=== PATIENT | male | born 1955 | race Caucasian/White ===

== ENCOUNTER 2017-01-17 02:27 | Emergency (ER) | payer OTHER ==
[~2017-01-17] VITALS: Ht 167.6 cm; Wt 98.8 kg
[~2017-01-17 02:27] MED LIST: ACET-703 PO; CENTTAB20 PO; FLUT1SPR5 EACH NARE; LISI-515 PO; LOVA20TA PO; MULT1TAB; VITA400C5 PO; VITASPR PO
[2017-01-17 02:31] VITALS: BP 133/76; PULSE 80; RESP 16; TEMP 98.4; O2SAT 94
[2017-01-17] MEDS ORDERED: LISI10TA3 PO (02:49)
[2017-01-17] MEDS ORDERED: [UNRECOGNIZED DRUG - OTHER] PO (02:51)
--- NOTE | 2017-01-17 03:13 | PD ---
HPI Chief Complaint: Complaint Time Seen by Provider: 02:52 Travel History International Travel<30 days: No Contact w/Intl Traveler<30days: No Traveled to known affect area: No History of Present Illness HPI The patient is a 62-year-old male that complains of blood in the urine for 2 days. He does have dysuria but denies any penile discharge. This is the first time he has noted blood in the urine. He denies any fever, nausea, vomiting or diarrhea. He denies any abdominal pain. His only medicine is lisinopril, he has a history of hypertension. PFSH Past Medical History Cancer: Yes (COLON) Diminished Hearing: No Hypertension: Yes Tetanus Vaccination: > 5 Years Influenza Vaccination: Yes Past Surgical History Other Surgery: Yes (COLON RESECTION S/P COLON CA) Social History Alcohol Use: Yes (RARELY) Tobacco Use: Yes (1 cig per day) Substance Use: No Allergies-Medications (Allergen,Severity, Reaction): Coded Allergies: Parafon Forte (Verified Allergy, Severe, Hives, 01/17/17) Reported Meds & Prescriptions Reported Meds & Active Scripts Active Pyridium (Phenazopyridine HCl) 100 Mg Tab 100 Mg PO Q8H PRN Macrobid (Nitrofurantoin Monohydrate Macrocrystals) 100 Mg Capsule 100 Mg PO BID 10 Days Reported [Research Study Meds] Unknown Dose PO BID Lisinopril 10 Mg Tab 10 Mg PO BID Review of Systems Except as stated in HPI: all other systems reviewed are Neg Physical Exam Narrative GENERAL: The patient is alert, oriented 3 in no apparent distress when I see him. His vital signs are normal. SKIN: Focused skin assessment warm/dry. No skin rash is seen. HEAD: Atraumatic. Normocephalic. EYES: Pupils equal and round. No scleral icterus. No injection or drainage. ENT: No nasal bleeding or discharge. Mucous membranes pink and moist. NECK: Trachea midline. No JVD. CARDIOVASCULAR: Regular rate and rhythm. No murmur appreciated. RESPIRATORY: No accessory muscle use. Clear to auscultation. Breath sounds equal bilaterally. GASTROINTESTINAL: Abdomen soft, non-tender, nondistended. Hepatic and splenic margins not palpable. No guarding or rebound is present. No flank tenderness is present. MUSCULOSKELETAL: No obvious deformities. No clubbing. No cyanosis. No edema. NEUROLOGICAL: Awake and alert. No obvious cranial nerve deficits. Motor grossly within normal limits. Normal speech. PSYCHIATRIC: Appropriate mood and affect; insight and judgment normal. Data Data Last Documented VS Vital Signs Date Time Temp Pulse Resp B/P Pulse Ox O2 Delivery O2 Flow Rate FiO2 01/17/17 02:31 98.4 80 16 133/76 94 Orders Urinalysis - C+S If Indicated (01/17/17 03:14) Urine Culture (01/17/17 03:15) Phenazopyridine (Pyridium) (01/17/17 04:00) Nitrofurantoin Monohyd Macrocr (Macrobid (01/17/17 04:00) Labs Laboratory Tests Test 01/17/17 03:15 Urine Color YELLOW Urine Turbidity SLIGHT Urine pH 6.0 Urine Specific [place] 1.021 Urine Protein 30 mg/dL Urine Glucose (UA) NEG mg/dL Urine Ketones NEG mg/dL Urine Occult Blood LARGE Urine Nitrite NEG Urine Bilirubin NEG Urine Leukocyte Esterase TRACE Urine RBC 25-49 /hpf Urine WBC 9-14 /hpf Urine Squamous Epithelial 0-5 /hpf Cells Urine Mucus MOD /lpf Microscopic Urinalysis Comment CULTURE INDICATED MDM Medical Decision Making Medical Screen Exam Complete: Yes Emergency Medical Condition: Yes Medical Record Reviewed: Yes Interpretation(s) The urine shows 30 protein, large occult blood, trace leukocyte esterase with 25 -49 red cells and 9-14 white cells and culture is indicated. Differential Diagnosis Urinary tract infection, bladder cancer, urethritis Narrative Course The patient has a urinary tract infection. Plan: He will be given a prescription for Macrobid for 10 days and follow-up with his primary care physician next week. Diagnosis Primary Impression: Cystitis Additional Instructions: Increase liquid intake and take the antibiotic twice daily for 10 days. Follow- up next week with her primary care physician. Med/Other Pt SpecificInfo: Prescription(s) given Scripts Phenazopyridine (Pyridium)100 Mg [id number] Mg PO Q8H PRN (DYSURIA) #21 TAB Ref 0 Prov:Ramesh Brown MD 01/17/17 Nitrofurantoin Monohydrate Macrocrystals (Macrobid)100 Mg [id number] Mg PO BID 10 Days Ref 0 Prov:Ramesh Brown MD 01/17/17 Disposition: 01 DISCHARGE HOME Condition: Stable Ramesh Brown MD Jan 17, 2017 03:13
[2017-01-17 03:22] LABS: BLOOD, URINE LARGE (NEG); GLUCOSE,URINE NEG (NEG); KETONE, URINE NEG (NEG); NITRITE,URINE NEG (NEG)
[2017-01-17 03:29] LABS: URINE COLOR YELLOW (YELLW/STRAW)
[2017-01-17 03:30] LABS: MUCUS URINE MOD /lpf (OCC)
[2017-01-17 03:31] LABS: COMMENT (UR) CULTURE INDICATED; CULTURE IF INDICATED CULTURE INDICATED; SQUAMOUS EPITHELIAL CELL URINE 0-5 /hpf (0-5)
[2017-01-17] MEDS ORDERED: PHEN0.4T PO (03:55)
[2017-01-17] MEDS ORDERED: MACR100C2 PO (03:55)
[2017-01-17] MEDS ORDERED: PHENAZOPYRIDINE HCL 200 MG TAB PO ONE (04:00)
[2017-01-17] MEDS ORDERED: NITROFURANTOIN MONOHYD MACROCR 100 MG CAP PO ONE (04:00)
== END 2017-01-17 04:12 | disposition home or self-care (01) ==
LOC: PHED 02:27
DX: N30.90 Cystitis, unspecified without hematuria (principal); I10 Essential (primary) hypertension; Z72.0 Tobacco use; B96.29 Other Escherichia coli [E. coli] as the cause of diseases classified elsewhere
CPT/HCPCS: 81001; 87086; 99284

== ENCOUNTER → 2017-02-27 | Outpatient (CLI) | payer OTHER ==
[~2017-02-27] MED LIST changes: -ACET-703 PO; -CENTTAB20 PO; -FLUT1SPR5 EACH NARE; -LISI-515 PO; +LISI10TA3 PO; +LOVA10TA PO; -LOVA20TA PO; -MULT1TAB; +MULTTAB23 PO; -VITA400C5 PO; -VITASPR PO
[2017-02-27 21:48] LABS: HEMOGLOBIN A1a 1.1 %; HEMOGLOBIN Ao 84.6 %; HEMOGLOBIN LA1C 1.9 %; HEMOGLOBIN P3 3.8 %
== END ==
LOC: PLAB 15:20
PROVIDERS: ATTEND Nurse Practitioner Family
DX: R73.9 Hyperglycemia, unspecified (principal)
CPT/HCPCS: 83036

== ENCOUNTER 2017-07-06 23:19 | Emergency (ER) | payer SELFPAY ==
[~2017-07-06] VITALS: Ht 167.6 cm; Wt 92.0 kg
[2017-07-06 23:26] VITALS: BP 162/88; PULSE 77; RESP 18; TEMP 98.4; O2SAT 96
[2017-07-07] MEDS ORDERED: PENICILLIN V POTASSIUM 500 MG TAB PO ONE (02:15)
[2017-07-07] MEDS ORDERED: IBUPROFEN 800 MG TAB PO ONE (02:15)
[2017-07-07 02:16] VITALS: BP 115/82; PULSE 78; RESP 18; TEMP 97.9; O2SAT 97
[2017-07-07] MEDS ORDERED: PENI500T PO (02:16)
[2017-07-07] MEDS ORDERED: IBUP-232 PO (02:16)
[2017-07-07] MEDS ORDERED: TRAM50TA PO (02:16)
--- NOTE | 2017-07-07 02:17 | PD ---
HPI Chief Complaint: Oral / Dental Pain or Problem Time Seen by Provider: 01:35 Travel History International Travel<30 days: No Contact w/Intl Traveler<30days: No Traveled to known affect area: No History of Present Illness HPI Patient has poor dentition he's had multiple tooth fractures and he does not have the money to see a dentist for definitive care of extraction. PFSH Past Medical History Arthritis: Yes Cancer: Yes (COLON) Diminished Hearing: No Hypertension: Yes Tetanus Vaccination: < 5 Years Influenza Vaccination: No Past Surgical History Other Surgery: Yes (COLON RESECTION S/P COLON CA) Social History Alcohol Use: Yes (Occ) Tobacco Use: Yes (1-2 cig per day) Substance Use: No Allergies-Medications (Allergen,Severity, Reaction): Coded Allergies: chlorzoxazone (Unverified Allergy, Severe, Hives, 07/07/17) Reported Meds & Prescriptions Reported Meds & Active Scripts Active Tramadol (Tramadol HCl) 50 Mg Tab 50 Mg PO Q4H PRN Ibuprofen 600 Mg Tab 600 Mg PO Q6H PRN Penicillin V Potassium 500 Mg Tab 500 Mg PO Q8H Lovastatin 10 Mg Tab 10 Mg PO DAILY Lisinopril 10 Mg Tab 10 Mg PO BID Multi For Him 50+ (Multiple Vitamins W/ Minerals) 1 Tab Tab 1 Tab PO DAILY Review of Systems Except as stated in HPI: all other systems reviewed are Neg HENT: Positive: Other (toothache and fractured teeth on the lower premolars bilateral) Physical Exam Narrative GENERAL: Patient is in no distress appears nontoxic SKIN: Warm and dry. HEAD: Atraumatic. Normocephalic. EYES: Pupils equal and round. No scleral icterus. No injection or drainage. ENT: Multiple fractured teeth on the lower mandible with swelling to submental nodes neck L>R No nasal bleeding or discharge. Mucous membranes pink and moist. NECK: Trachea midline. No JVD. CARDIOVASCULAR: Regular rate and rhythm. RESPIRATORY: No accessory muscle use. Clear to auscultation. Breath sounds equal bilaterally. GASTROINTESTINAL: Abdomen soft, non-tender, nondistended. Hepatic and splenic margins not palpable. MUSCULOSKELETAL: Extremities without clubbing, cyanosis, or edema. No obvious deformities. NEUROLOGICAL: Awake and alert. No obvious cranial nerve deficits. Motor grossly within normal limits. Five out of 5 muscle strength in the arms and legs. Normal speech. PSYCHIATRIC: Appropriate mood and affect; insight and judgment normal. Data Data Last Documented VS Vital Signs Date Time Temp Pulse Resp B/P (MAP) Pulse Ox O2 Delivery O2 Flow Rate FiO2 07/07/17 02:29 07/07/17 02:16 97.9 78 18 97 Room Air Orders Orders Penicillin V Potassium (Veetids) (07/07/17 02:15) Ibuprofen (Motrin) (07/07/17 02:15) Ed Discharge Order (07/07/17 02:27) MDM Medical Decision Making Medical Screen Exam Complete: Yes Emergency Medical Condition: Yes Differential Diagnosis Fractured tooth versus infected tooth versus apical abscess versus gingivitis Narrative Course Motrin and Pen-Vee K for 7 days follow-up in the dental clinic Diagnosis Primary Impression: Toothache Scripts Tramadol (Tramadol) 50 Mg Tab 50 MG PO Q4H Y for PAIN, #12 TAB 0 Refills Prov: Iker Corea MD 07/07/17 Ibuprofen (Ibuprofen) 600 Mg Tab 600 MG PO Q6H Y for PAIN, #20 TAB 0 Refills Prov: Iker Corea MD 07/07/17 Penicillin V Potassium (Penicillin V Potassium) 500 Mg Tab 500 MG PO Q8H for Infection, #30 TAB 0 Refills Prov: Iker Corea MD 07/07/17 Iker Corea MD Jul 07, 2017 02:17
== END 2017-07-07 02:37 | disposition home or self-care (01) ==
LOC: PHED 23:19
DX: K08.89 Other specified disorders of teeth and supporting structures (principal); I10 Essential (primary) hypertension; Z85.038 Personal history of other malignant neoplasm of large intestine; Z72.0 Tobacco use
CPT/HCPCS: 99284

== ENCOUNTER 2017-07-25 14:41 | Emergency (ER) | payer SELFPAY ==
[~2017-07-25] VITALS: Ht 167.6 cm; Wt 93.0 kg
[~2017-07-25 14:41] MED LIST changes: +IBUP-232 PO; +PENI500T PO; +TRAM50TA PO
[2017-07-25 15:17] VITALS: BP 155/98; PULSE 68; RESP 16; TEMP 97.5; O2SAT 96
[2017-07-25 15:43] LABS: BILIRUBIN, URINE NEG (NEG); BLOOD, URINE MOD (NEG); GLUCOSE,URINE 100 mg/dL (NEG); KETONE, URINE NEG (NEG); NITRITE,URINE POS (NEG); PH, URINE 6.5 (5.0-8.5); URINE LEUKOCYTE ESTERASE NEG (NEG)
[2017-07-25 15:45] LABS: URINE COLOR YELLOW (YELLW/STRAW)
[2017-07-25 15:46] LABS: SQUAMOUS EPITHELIAL CELL URINE 0-5 /hpf (0-5); WBC, URINE 0-2 /hpf (0-5)
--- NOTE | 2017-07-25 16:33 | PD ---
HPI Chief Complaint: Complaint Time Seen by Provider: 16:20 Travel History International Travel<30 days: No Contact w/Intl Traveler<30days: No Traveled to known affect area: No History of Present Illness HPI 62yo M presented to the ED for problems starting urination, increased frequency and dysuria. He states that he had a UTI two months ago and was treated accordingly with antibiotics. He subsequently passed a kidney stone as well. Pt states that he feels the need to urinate every time he stands up and that it takes him awhile to start urinating. Pt denies gross hematuria, flank pain, discharge, fever, nausea or vomiting. Modifying Factors: None Associated Signs & Symptoms: Urinary symptoms Risk Factors: Recent UTI PFSH Past Medical History Arthritis: Yes Cancer: Yes (COLON) Diminished Hearing: No Hypertension: Yes Past Surgical History Other Surgery: Yes (COLON RESECTION S/P COLON CA) Social History Alcohol Use: Yes (RARE) Tobacco Use: Yes (1-2 cig per day) Substance Use: No Allergies-Medications (Allergen,Severity, Reaction): Coded Allergies: chlorzoxazone (Unverified Allergy, Severe, Hives, 07/25/17) Reported Meds & Prescriptions Reported Meds & Active Scripts Active Lisinopril 10 Mg Tab 10 Mg PO BID Review of Systems Except as stated in HPI: all other systems reviewed are Neg Genitourinary: Positive: Urgency, Frequency, Dysuria Physical Exam Narrative GENERAL: Well-developed elderly white male patient currently in no acute distress.. Alert and oriented x3. SKIN: Warm and dry. HEAD: Atraumatic. Normocephalic. NECK: Trachea midline. No JVD. CARDIOVASCULAR: Regular rate and rhythm. RESPIRATORY: No accessory muscle use. Clear to auscultation. Breath sounds equal bilaterally. GASTROINTESTINAL: Abdomen soft, mild suprapubic tenderness without guarding or rebound, nondistended. Hepatic and splenic margins not palpable. GENITOURINARY: no CVA tenderness MUSCULOSKELETAL: Extremities without clubbing, cyanosis, or edema. No obvious deformities. NEUROLOGICAL: Awake and alert. No obvious cranial nerve deficits. Normal speech. PSYCHIATRIC: Appropriate mood and affect; insight and judgment normal. Data Data Last Documented VS Vital Signs Date Time Temp Pulse Resp B/P (MAP) Pulse Ox O2 Delivery O2 Flow Rate FiO2 07/25/17 15:17 97.5 68 16 155/98 (117) 96 Orders Orders Urinalysis - C+S If Indicated (07/25/17 15:22) Urine Culture (07/25/17 15:26) Labs Laboratory Tests Test 07/25/17 15:26 Urine Collection Type CLEAN CATCH Urine Color YELLOW Urine Turbidity CLEAR Urine pH 6.5 Urine Specific [place] 1.021 Urine Protein 30 mg/dL Urine Glucose (UA) 100 mg/dL Urine Ketones NEG mg/dL Urine Occult Blood MOD Urine Nitrite POS Urine Bilirubin NEG Urine Leukocyte Esterase NEG Urine RBC 20-24 /hpf Urine WBC 0-2 /hpf Urine Squamous Epithelial Cells 0-5 /hpf Microscopic Urinalysis Comment CULTURE INDICATED Urine Collection Time 15:26 [facility] Medical Decision Making Medical Screen Exam Complete: Yes Emergency Medical Condition: Yes Medical Record Reviewed: Yes Differential Diagnosis UTI versus BPH versus renal colic Narrative Course He apparently had similar symptoms last month and had been treated for UTI and the symptoms improved. UA shows signs of UTI with nitrite positive. Abdomen is otherwise benign and I do not think that he has an acute intra-abdominal process or pyelonephritis. My plan would be to treat his UTI and have him follow-up with primary care doctor. He is able to urinate and states he urinates frequently. I do not see any dribbling and I do not palpate any obvious enlargement of the bladder. He should be evaluated more officially including valuation of the prostate for BPH if symptoms do not improve. Return for any worsening in symptoms as needed. The plan has been discussed with him and he states understanding. Diagnosis Primary Impression: Cystitis Med/Other Pt SpecificInfo: Prescription(s) given Scripts Nitrofurantoin Monohydrate Macrocrystals (Macrobid) 100 Mg Cap 100 MG PO BID for Infection for 7 Days, #14 CAP 0 Refills Prov: Mor Bryan MD 07/25/17 Disposition: 01 DISCHARGE HOME Condition: Stable Mor Bryan MD Jul 25, 2017 16:32
[2017-07-25] MEDS ORDERED: MACR100C2 PO (16:36)
== END 2017-07-25 16:55 | disposition home or self-care (01) ==
LOC: PHED 14:41
DX: N30.91 Cystitis, unspecified with hematuria (principal); I10 Essential (primary) hypertension; Z72.0 Tobacco use; Z87.442 Personal history of urinary calculi; Z85.038 Personal history of other malignant neoplasm of large intestine; Z87.39 Personal history of other diseases of the musculoskeletal system and connective tissue
CPT/HCPCS: 81001; 87086; 99283

== ENCOUNTER 2017-11-04 23:52 | Emergency (ER) | payer SELFPAY ==
[~2017-11-04] VITALS: Ht 167.6 cm; Wt 89.0 kg
[~2017-11-04 23:52] MED LIST changes: -IBUP-232 PO; -LOVA10TA PO; +MACR100C2 PO; -MULTTAB23 PO; -PENI500T PO; -TRAM50TA PO
[2017-11-04 23:59] VITALS: BP 158/90; PULSE 96; RESP 20; TEMP 98.2; O2SAT 96
[2017-11-05] MEDS ORDERED: TYLE325T PO (00:08)
[2017-11-05] MEDS ORDERED: SODIUM CHLORIDE 0.9% FLUSH 10 ML FLUSH IVF PRN (00:30)
[2017-11-05] MEDS ORDERED: methylPREDNISolone SOD SUCC 125 MG/2 ML VIAL IV PUSH ONE (00:30)
[2017-11-05] MEDS: RESP: ALBUTEROL 2.5 MG/IPRATROPIUM 0.5 MG NEB (SCH) INH ×2 (00:39→00:48)
[2017-11-05 00:43] LABS: BASOPHIL # 0.3 TH/MM3 (0-0.2); BASOPHIL % 2.6 % (0.0-2.0); EOSINOPHIL # 0.1 TH/MM3 (0-0.4); EOSINOPHIL % 1.4 % (0.0-4.0); HEMATOCRIT 41.1 % (39.0-51.0); HEMOGLOBIN 13.8 GM/DL (13.0-17.0); LYMPH % 18.3 % (9.0-44.0); LYMPHOCYTE # 1.9 TH/MM3 (1.0-4.8); MEAN CELL VOLUME 89.6 FL (80.0-100.0); MEAN CORPUSCULAR HGB CONC 33.5 % (32.0-36.0); MEAN PLATELET VOLUME 7.8 FL (7.0-11.0); MONO % 8.8 % (0.0-8.0); MONOCYTE # 0.9 TH/MM3 (0-0.9); NEUT % 68.9 % (16.0-70.0); PLATELET COUNT 299 TH/MM3 (150-450); RED BLOOD COUNT 4.59 MIL/MM3 (4.50-5.90); RED CELL DISTRIBUTION WIDTH 15.1 % (11.6-17.2); WHITE BLOOD COUNT 10.2 TH/MM3 (4.0-11.0)
[2017-11-05 00:49] LABS: CHLORIDE 107 MEQ/L (98-107); SODIUM (NA) 141 MEQ/L (136-145)
[2017-11-05 00:51] LABS: CALCIUM 8.5 MG/DL (8.5-10.1)
[2017-11-05 00:52] LABS: BICARBONATE 29.1 MEQ/L (21.0-32.0); BLOOD UREA NITROGEN 32 MG/DL (7-18); GLUCOSE,RANDOM 89 MG/DL (74-106)
[2017-11-05 00:55] LABS: GLOMERULAR FILTRATION RATE 48 ML/MIN (>89)
--- NOTE | 2017-11-05 00:59 | PD ---
HPI Chief Complaint: Cold / Flu Symptoms Time Seen by Provider: 00:22 Travel History International Travel<30 days: No Contact w/Intl Traveler<30days: No Traveled to known affect area: No History of Present Illness HPI 62-year-old male presents to the emergency department by private transportation for evaluation of cough with shortness of breath and wheezing 1 week. Patient admits to tobacco use and history of hypertension. Patient denies known coronary vessel disease or diabetes. Patient denies personal history of asthma COPD bronchitis or pneumonia. Patient has had cough productive of yellow sputum. Patient does not report orthopnea or PND. Patient's had no lower extremity pain or swelling. No recent long distance travel protracted bedrest or surgical procedure. Patient denies fever or chills. Pain is 5/10 intensity with cough. Patient is unable to identify exacerbating or alleviating factors. PFSH Past Medical History Narrative Medical Arthritis hypertension dyslipidemia colon cancer with partial colectomy alcohol use tobacco use nursing notes for Arthritis: Yes Cancer: Yes (COLON) High Cholesterol: Yes Diminished Hearing: No Hypertension: Yes Pneumonia: Yes Tetanus Vaccination: < 5 Years Past Surgical History Other Surgery: Yes (COLON RESECTION S/P COLON CA) Social History Alcohol Use: Yes (RARE) Tobacco Use: Yes (1-2 cig per day) Substance Use: No Allergies-Medications (Allergen,Severity, Reaction): Coded Allergies: chlorzoxazone (Unverified Allergy, Severe, Hives, 11/04/17) Reported Meds & Prescriptions Reported Meds & Active Scripts Active Lisinopril 10 Mg Tab 10 Mg PO BID Reported Tylenol (Acetaminophen) 325 Mg Tab 650 Mg PO Q4H PRN Review of Systems Except as stated in HPI: all other systems reviewed are Neg Physical Exam Narrative GENERAL: Well-developed well-nourished male no acute distress or respiratory distress SKIN: Warm and dry. HEAD: Normocephalic. EYES: No scleral icterus. No injection or drainage. NECK: Supple, trachea midline. No JVD or lymphadenopathy. CARDIOVASCULAR: Regular rate and rhythm without murmurs, gallops, or rubs. RESPIRATORY: Breath sounds equal bilaterally with expiratory wheezes and rhonchi. No accessory muscle use. GASTROINTESTINAL: Abdomen soft, non-tender, nondistended. MUSCULOSKELETAL: No cyanosis, or edema. BACK: Nontender without obvious deformity. No CVA tenderness. Data Data Last Documented VS Vital Signs Date Time Temp Pulse Resp B/P (MAP) Pulse Ox O2 Delivery O2 Flow Rate FiO2 11/05/17 01:12 88 24 94 Room Air 11/04/17 23:59 98.2 158/90 (112) Orders Orders Complete Blood Count With Diff (11/05/17 00:22) B-Type Natriuretic Peptide (11/05/17 00:22) Basic Metabolic Panel (Bmp) (11/05/17:22) Chest, Pa & Lat (11/05/17 ) Iv Access Insert/Monitor (11/05/17:) Oximetry (11/05/17:22) Sodium Chloride 0.9% Flush (Ns Flush) (11/05/17 00:30) Methylprednisolone So Succ Inj (Solumedr (11/05/17 00:30) Albuterol-Ipratropium Neb (Duoneb Neb) (11/05/17 00:30) Troponin I (11/05/17:) Sputum Culture And Gram Stain (11/05/17:) Albuterol-Ipratropium Neb (Duoneb Neb) (11/05/17 01:30) Ceftriaxone Inj (Rocephin Inj) (11/05/17 01:30) Labs Laboratory Tests Test 11/05/17 00:25 White Blood Count 10.2 TH/MM3 Red Blood Count 4.59 MIL/MM3 Hemoglobin 13.8 GM/DL Hematocrit 41.1 % Mean Corpuscular Volume 89.6 FL Mean Corpuscular Hemoglobin 30.0 PG Mean Corpuscular Hemoglobin Concent 33.5 % Red Cell Distribution Width 15.1 % Platelet Count 299 TH/MM3 Mean Platelet Volume 7.8 FL Neutrophils (%) (Auto) 68.9 % Lymphocytes (%) (Auto) 18.3 % Monocytes (%) (Auto) 8.8 % Eosinophils (%) (Auto) 1.4 % Basophils (%) (Auto) 2.6 % Neutrophils # (Auto) 7.0 TH/MM3 Lymphocytes # (Auto) 1.9 TH/MM3 Monocytes # (Auto) 0.9 TH/MM3 Eosinophils # (Auto) 0.1 TH/MM3 Basophils # (Auto) 0.3 TH/MM3 CBC Comment DIFF FINAL Differential Comment Blood Urea Nitrogen 32 MG/DL Creatinine 1.50 MG/DL Random Glucose 89 MG/DL Calcium Level 8.5 MG/DL Sodium Level 141 MEQ/L Potassium Level 4.1 MEQ/L Chloride Level 107 MEQ/L Carbon Dioxide Level 29.1 MEQ/L Anion Gap 5 MEQ/L Estimat Glomerular Filtration Rate 48 ML/MIN Troponin I LESS THAN 0.02 NG/ML B-Type Natriuretic Peptide 14 PG/ML MDM Medical Decision Making Medical Screen Exam Complete: Yes Emergency Medical Condition: Yes Medical Record Reviewed: Yes Interpretation(s) CBC & BMP Diagram 11/05/17 00:25 Calcium Level 8.5 Vital Signs Date Time Temp Pulse Resp B/P (MAP) Pulse Ox O2 Delivery O2 Flow Rate FiO2 11/05/17 01:12 88 24 94 Room Air 11/05/17 00:43 Aerosol Mask 11/05/17 00:14 86 99 Room Air 11/04/17 23:59 98.2 96 20 158/90 (112) 96 troponin I: less than 0.02, not elevated; bnp: 14, not elevated Differential Diagnosis Dyspnea, bronchitis, pneumonia, CHF, PE Narrative Course Patient presents with productive cough wheezing and shortness of breath; IV access obtained specimens collected and sent for resulting patient given Solu- Medrol and DuoNeb updrafts 2 Patient identified to have hyperinflation on chest x-ray no lobar infiltrate or vascular congestion or effusion no pneumothorax; findings consistent with COPD CBC with automated differential chemistries grossly within normal range except for renal insufficiency; troponin less than 0.02 and BNP is not elevated at 14 Patient given additional dose of DuoNeb and one-time dose of Rocephin 1 g for bronchitis Patient is clinically improved and stable for outpatient management. Diagnosis Primary Impression: Acute bronchitis with COPD Referrals: Primary Care Physician call for appointment Patient Instructions: General Instructions Additional Instructions: Increase fluid hydration Take medications as prescribed Follow-up with your primary care provider Take acetaminophen as needed for fever 100.4F or greater Return to the emergency department for any concerns or change in condition Med/Other Pt SpecificInfo: Prescription(s) given Scripts Methylprednisolone Dosepak (Medrol Dosepak) 4 Mg Dspk 4 MG PO DIRECTED, #1 DSPK 0 Refills Per Pharmacist direction Prov: Janeth Hall MD 11/05/17 Albuterol 18 GM Inh (Ventolin Hfa 18 GM Inh) 90 Mcg/Act Aer 2 PUFF INH Q4-6H Y for SHORTNESS OF BREATH, #1 INHALER 0 Refills Prov: Janeth Hall MD 11/05/17 Azithromycin (Zithromax Z-Robbie) 250 Mg Dspk 250 MG PO DIRECTED for Infection, #1 DSPK 0 Refills 500 MG (2 tabs) day 1, then 1 tab days 2-5. Prov: Janeth Hall MD 11/05/17 Disposition: 01 DISCHARGE HOME Condition: Stable Janeth Hall MD Nov 05, 2017 00:59
[2017-11-05 01:00] LABS: TROPONIN I LESS THAN 0.02 NG/ML (0.02-0.05)
[2017-11-05 01:12] VITALS: PULSE 88; RESP 24; O2SAT 94
--- NOTE | 2017-11-05 01:19 | RADRPT ---
EXAM DATE/TIME: 11/05/2017 00:40 [facility] COMPARISON: No previous studies available for comparison. INDICATIONS : Cough. MEDICAL HISTORY : None. SURGICAL HISTORY : None. ENCOUNTER: Initial ACUITY: 1 day PAIN SCORE: 0/10 LOCATION: Bilateral chest FINDINGS: PA and lateral views of the chest demonstrate the lungs to be symmetrically aerated without evidence of mass, infiltrate or effusion. The lungs are hyperinflated bilaterally. The cardiomediastinal conto urs are unremarkable. Osseous structures are intact. CONCLUSION: Hyperinflation suggesting COPD. No acute infiltrate or effusion. Osman Brooks Jr., MD on November 05, 2017 at 1:17 Board Certified Radiologist. This report was verified electronically.
[2017-11-05 01:30] VITALS: BP 150/90; PULSE 90; RESP 24; O2SAT 96
[2017-11-05] MEDS ORDERED: cefTRIAXone INJ 1,000 MG in SODIUM CHLORIDE 0.9% INJ 100 ML IV ONE (01:30)
[2017-11-05] MEDS ORDERED: RESP: ALBUTEROL 2.5 MG/IPRATROPIUM 0.5 MG NEB (SCH) NEB ONE (01:30)
[2017-11-05] MEDS ORDERED: VENTAER INH (01:33)
[2017-11-05] MEDS ORDERED: MEDR4PAK PO (01:33)
[2017-11-05] MEDS ORDERED: ZITHTAB PO (01:33)
== END 2017-11-05 02:15 | disposition home or self-care (01) ==
LOC: PHED 23:52
DX: J20.9 Acute bronchitis, unspecified (principal); B96.3 Hemophilus influenzae [H. influenzae] as the cause of diseases classified elsewhere; J44.0 Chronic obstructive pulmonary disease with (acute) lower respiratory infection; I10 Essential (primary) hypertension; M19.90 Unspecified osteoarthritis, unspecified site; E78.5 Hyperlipidemia, unspecified; F17.210 Nicotine dependence, cigarettes, uncomplicated; Z85.038 Personal history of other malignant neoplasm of large intestine
CPT/HCPCS: 71046; 80048; 83880; 84484; 85025; 87070; 87184; 87185; 87205; 94640; 94664; 96365; 96375; 99284; J0696; J2930